=== PATIENT | male | born 1990 | race Two or more races ===

== ENCOUNTER 2021-02-14 07:37 | Outpatient (REF) | payer BC, SELFPAY | END 2021-02-14 07:38 | disposition home or self-care (01) | LOC: HO.LAB 07:37 | PROVIDERS: Visit Provider Internal Medicine | DX: Z20.822 Contact with and (suspected) exposure to COVID-19 (principal) | CPT/HCPCS: C9803; U0003; U0005 ==

== ENCOUNTER 2021-04-10 07:59 | Outpatient (REF) | payer BC, SELFPAY | END 2021-04-10 08:00 | disposition home or self-care (01) | LOC: HO.LAB 07:59 | PROVIDERS: Visit Provider Internal Medicine | DX: Z20.822 Contact with and (suspected) exposure to COVID-19 (principal) | CPT/HCPCS: C9803; U0003; U0005 ==